=== PATIENT | male | born 1990 | race Two or more races ===

== ENCOUNTER 2018-10-18 13:34 | Emergency (ER) | payer OTHER ==
[~2018-10-18] VITALS: Ht 177.8 cm; Wt 87.3 kg
[2018-10-18] MEDS ORDERED: CLIN150C14 PO (13:39)
[2018-10-18] MEDS ORDERED: NS 1,000 ML IV ONE ×2 (14:15→15:15)
[2018-10-18] MEDS ORDERED: KETOROLAC 30 MG/ML VIAL (J1885) IV ONE (14:15)
[2018-10-18 14:35] LABS: BASO # 0.1 10^3/uL (0.0-0.2); BASO % 0.2 % (0.0-1.0); EOS % 0.2 % (0.0-3.0); HEMATOCRIT 46.2 % (42.0-52.0); HEMOGLOBIN 15.4 g/dl (13.5-17.5); LYMPH # 1.8 10^3/uL (1.5-4.5); LYMPH % 8.7 % (24.0-44.0); MEAN CORPUSCULAR HEMOGLOBIN 26.8 pg (27.0-33.0); MEAN CORPUSCULAR HGB CONC 33.3 g/dl (32.0-36.5); MEAN CORPUSCULAR VOLUME 80.5 fl (80.0-96.0); MONO # 1.4 10^3/uL (0.0-0.8); NEUTROPHILS # 16.5 10^3/uL (1.8-7.7); NEUTROPHILS % 82.4 % (36.0-66.0); PLATELET COUNT, AUTOMATED 250 10^3/uL (150-450); RED BLOOD COUNT 5.74 10^6/uL (4.30-6.10)
[2018-10-18 14:57] LABS: ERYTHROCYTE SEDIMENTATION RATE 1 mm/hr (0-15)
[2018-10-18 15:02] LABS: BLOOD UREA NITROGEN 26 MG/DL (7-18); C REACTIVE PROTEIN QUANTITATIV < 0.30 MG/DL (0.00-0.30); CARBON DIOXIDE LEVEL 28 MEQ/L (21-32); CHLORIDE LEVEL 106 MEQ/L (98-107); CREATININE FOR GFR 0.97 MG/DL (0.70-1.30); GLOMERULAR FILTRATION RATE > 60.0 (>60); GLUCOSE, FASTING 84 MG/DL (70-100); POTASSIUM SERUM 4.6 MEQ/L (3.5-5.1); SODIUM LEVEL 141 MEQ/L (136-145)
[2018-10-18] MEDS ORDERED: ISOVUE-370 76% 100ML VIAL (Q9967) As Ordered ONE (15:07)
[2018-10-18] MEDS ORDERED: AMPICILLIN SOD/SULBACTAM SOD 3 GM in D5W MINI-BAG PLUS 100 ML IV ONE (15:30)
[2018-10-18 16:07] VITALS: BP 139/82
[2018-10-18] MEDS ORDERED: ACETAMINOPHEN 325 MG TAB PO ONE (16:15)
[2018-10-18] MEDS ORDERED: AUGM875T28 PO (16:51)
--- NOTE | 2018-10-19 10:25 | REP ---
MAXILLOFACIAL CT STUDY WITH IV CONTRAST: HISTORY: Sinus surgery 3 weeks ago. Purulent drainage and fever. CT CONTRAST DOSE: 75 mL of intravenous Isovue 370. No comparison study. CT FINDINGS: Preliminary digital processor grain radiographs are unremarkable. There are widely patent nasoantral windows bilaterally. The maxillary sinuses are clear. Sphenoid, ethmoid, and frontal sinuses are clear. Mastoid aeration is normal and symmetric. The nasopharynx is unremarkable. Bony nasal septum is essentially in the midline. The right inferior nasal turbinate is quite small compared to the left. No nasal polyp is seen. At the anterior edge of the nasal septum, inferiorly, just anterior to the inferior maxillary spine, there is some soft tissue swelling and irregularity. A small air bubble is seen here. This may be inflammatory change. Some air bubbles are seen at the anterior tip of the nasal septum. This may reflect chondritis of the inferior nasal septal cartilage. The uncinate processes appear to have been resected bilaterally. No bony destructive lesion is seen. No intraorbital abnormality is observed. No soft tissue abscess is appreciated. Visualized intracranial structures are unremarkable. IMPRESSION: Some soft tissue irregularity and air bubbles in the tip of the nasal cartilages and adjacent to the inferior maxillary spine, question anterior nasal septal chondritis. No abscess is seen. Paranasal sinuses are clear. Status post bilateral uncinectomy. Electronically Signed by Oleg Garcia MD 10/19/2018 10:29 A
== END 2018-10-18 17:17 | disposition home or self-care (01) ==
LOC: M ED 13:34
DX: J32.9 Chronic sinusitis, unspecified (principal); Z98.890 Other specified postprocedural states
CPT/HCPCS: 70487; 80048; 83605; 85025; 85652; 86140; 87040; 96361; 96365; 96375; 99284; J1885; Q9967

== ENCOUNTER → 2018-10-27 | Outpatient (CLI) | payer OTHER ==
[~2018-10-27] MED LIST: AUGM875T28 PO; CLIN150C14 PO
--- NOTE | 2018-10-27 10:07 | REP ---
MAXILLOFACIAL CT WITHOUT CONTRAST: HISTORY: Facial pain. COMPARISON: 10/18/2018 The patient is status post bilateral uncinectomy, partial ethmoidectomy, and partial right middle and inferior nasal turbinectomy. The sinuses are clear. The middle and inferior nasal turbinates are partially paradoxical. There is minimal deviation of the nasal septum to the right. The cribriform plate, medial murillo of the orbits, and optic canals are intact. The carotid canals form a segment of the posterolateral murillo of the sphenoid sinus. The sphenoid sinus septa insert into the internal carotid canal murillo. There is irregularity of the cartilaginous nasal septum. Small collections of air are present. This appears unchanged compared to the previous study. IMPRESSION: 1. Postoperative change as described above. There is irregularity of the cartilaginous nasal septum. Small collections of air are present. These findings are unchanged compared to the previous study. This may represent inflammation or scarring. 2. There is no acute or chronic sinusitis. Electronically Signed by Zay Khan MD 10/27/2018 10:20 A
== END ==
LOC: M RAD 08:48
PROVIDERS: ATTEND Family Medicine
DX: Z98.890 Other specified postprocedural states (principal); R51 Headache

== ENCOUNTER → 2018-11-04 | Outpatient (REF) | payer OTHER | LOC: M LAB REF 15:57 | PROVIDERS: ATTEND Otolaryngology | DX: L03.211 Cellulitis of face (principal) ==

== ENCOUNTER → 2018-11-17 | Outpatient (REF) | payer OTHER ==
[2018-11-17 15:53] LABS: BASO % 0.4 % (0.0-1.0); EOS % 0.4 % (0.0-3.0); HEMATOCRIT 45.7 % (42.0-52.0); HEMOGLOBIN 14.6 g/dl (13.5-17.5); LYMPH # 2.9 10^3/uL (1.5-4.5); LYMPH % 34.2 % (24.0-44.0); MEAN CORPUSCULAR HEMOGLOBIN 25.9 pg (27.0-33.0); MEAN CORPUSCULAR HGB CONC 31.9 g/dl (32.0-36.5); MEAN CORPUSCULAR VOLUME 81.2 fl (80.0-96.0); MONO # 0.7 10^3/uL (0.0-0.8); MONO % 8.5 % (0.0-5.0); NEUTROPHILS # 4.8 10^3/uL (1.8-7.7); PLATELET COUNT, AUTOMATED 278 10^3/uL (150-450); RED BLOOD COUNT 5.63 10^6/uL (4.30-6.10); WHITE BLOOD COUNT 8.5 10^3/uL (4.0-10.0)
[2018-11-17 15:58] LABS: ALBUMIN 4.1 GM/DL (3.2-5.2); ALT/SGPT 28 U/L (12-78); BILIRUBIN,TOTAL 0.3 MG/DL (0.2-1.0); BLOOD UREA NITROGEN 19 MG/DL (7-18); C REACTIVE PROTEIN QUANTITATIV < 0.30 MG/DL (0.00-0.30); CALCIUM LEVEL 9.4 MG/DL (8.5-10.1); CARBON DIOXIDE LEVEL 30 MEQ/L (21-32); CHLORIDE LEVEL 107 MEQ/L (98-107); CREATININE FOR GFR 0.99 MG/DL (0.70-1.30); GLOMERULAR FILTRATION RATE > 60.0 (>60); GLUCOSE, FASTING 88 MG/DL (70-100); POTASSIUM SERUM 4.8 MEQ/L (3.5-5.1); SODIUM LEVEL 141 MEQ/L (136-145); TOTAL PROTEIN 7.9 GM/DL (6.4-8.2)
[2018-11-17 17:03] LABS: ERYTHROCYTE SEDIMENTATION RATE 5 mm/hr (0-15)
[2018-11-18 10:48] LABS: HEPATITIS B SURFACE ANTIGEN NEGATIVE (NEGATIVE)
[2018-11-18 11:18] LABS: HIV 1&2 SCREEN CENTAUR NEGATIVE (NEGATIVE)
[2018-11-19 08:06] LABS: HEPATITIS A IgG TOTAL Positive (Negative)
== END ==
LOC: M SFHCPLAZ 13:04
PROVIDERS: ATTEND Internal Medicine Infectious Disease
DX: T81.49XA Infection following a procedure, other surgical site, initial encounter (principal)
CPT/HCPCS: 36415; 80053; 85025; 85652; 86140; 86317; 86708; 87340; 87389; G0463

== ENCOUNTER → 2018-11-18 | Outpatient (CLI) | payer OTHER ==
[~2018-11-18] MED LIST changes: +ISOVUE-370 76% 100ML VIAL (Q9967) As Ordered ONE
--- NOTE | 2018-11-18 08:45 | REP ---
CT Head without and with contrast HISTORY: Headache CONTRAST: Isovue 370 75 ml COMPARISON: None There is no intraparenchymal hemorrhage, acute infarct, mass or midline shift. There is no abnormal enhancement. The ventricular system is normal in appearance. There is minimal cerebellar volume loss. There is no extra cerebral collection. The visualized sinuses are clear. Impression: Minimal cerebellar volume loss. Electronically Signed by Zay Khan MD 11/18/2018 08:36 A
== END ==
LOC: M RAD 07:28
PROVIDERS: ATTEND Internal Medicine Infectious Disease
DX: T81.49XA Infection following a procedure, other surgical site, initial encounter (principal)
CPT/HCPCS: 70470; Q9967

== ENCOUNTER → 2018-12-09 | Outpatient (REF) | payer OTHER ==
[~2018-12-09] MED LIST changes: -ISOVUE-370 76% 100ML VIAL (Q9967) As Ordered ONE
== END ==
LOC: M LAB REF 15:40
PROVIDERS: ATTEND Otolaryngology
DX: J95.89 Other postprocedural complications and disorders of respiratory system, not elsewhere classified (principal); T86.831 Bone graft failure; Y72.2 Prosthetic and other implants, materials and accessory otorhinolaryngological devices associated with adverse incidents; J31.0 Chronic rhinitis

== ENCOUNTER → 2019-01-26 | Outpatient (REF) | payer OTHER ==
[2019-01-26 15:55] LABS: APPEARANCE, URINE CLEAR (CLEAR); BACTERIA, URINE AUTO NEGATIVE (NEGATIVE); BILIRUBIN, URINE AUTO NEGATIVE (NEGATIVE); BLOOD, URINE BLOOD NEGATIVE (NEGATIVE); COLOR, URINE STRAW (YELLOW); GLUCOSE, URINE (UA) AUTO NEGATIVE (NEGATIVE); KETONE, URINE AUTO NEGATIVE (NEGATIVE); LEUKOCYTE ESTERASE, URINE AUTO NEGATIVE (NEGATIVE); NITRITE, URINE AUTO NEGATIVE (NEGATIVE); PROTEIN, URINE AUTO NEGATIVE (NEGATIVE); RBC, URINE AUTO 5 /HPF (0-3); SPECIFIC GRAVITY URINE AUTO 1.003 (1.002-1.035); SQUAMOUS EPITHELIAL CELL UR AU 0 /HPF (0-6); UROBILINOGEN, URINE AUTO 0.2 mg/dL (0.0-2.0); WBC, URINE AUTO 0 /HPF (0-3)
== END ==
LOC: M SFHCPLAZ 11:44
PROVIDERS: ATTEND Internal Medicine Infectious Disease
DX: Z72.52 High risk homosexual behavior (principal)
CPT/HCPCS: 81001; 90471; G0463

== ENCOUNTER → 2019-04-26 | Outpatient (REF) | payer OTHER ==
[2019-04-26 14:38] LABS: CHLAMYDIA DNA AMPLIFICATION NEGATIVE (NEGATIVE); GC DNA AMPLIFICATION NEGATIVE (NEGATIVE)
[2019-04-29 00:15] LABS: CHLAMYDIA PHARYNGEAL APTIMA Negative (Negative); CHLAMYDIA RECTAL APTIMA Negative (Negative); GC PHARYNGEAL APTIMA Negative (Negative); GC RECTAL APTIMA Negative (Negative)
== END ==
LOC: M SFHCPLAZ 11:12
PROVIDERS: ATTEND Internal Medicine Infectious Disease
DX: Z72.52 High risk homosexual behavior (principal)
CPT/HCPCS: 87491; 87591; 90651; G0463

== ENCOUNTER → 2020-08-04 | Outpatient (CLI) | payer SELFPAY ==
[~2020-08-04] MED LIST changes: -CLIN150C14 PO; +CLIN150C15 PO
== END ==
LOC: M LABSMTC 10:48
PROVIDERS: ATTEND Pediatrics
DX: Z20.822 Contact with and (suspected) exposure to COVID-19 (principal)